=== PATIENT | female | born 1935 | race Caucasian/White ===

== ENCOUNTER 2016-08-09 00:33 | Inpatient (IN) | payer MEDICARE, BC ==
--- NOTE | 2016-08-09 01:09 | ED ---
gerry Arguelles Timothy, scribed for Calixto Guerrero MD on 08/09/16 at 0053 . Altered Mental Status - HPI Summary HPI Summary: Elo Smith is an 81 yo female presenting to [facility] with symptoms including confusion and inability to bend her right knee, including diaphoresis with the attempt. Additionally she states general weakness, nausea, and head ache as of 1999 today 08/08/16. She was at rest when she noticed her Sx. Her Hx includes TIA. - History Of Current Complaint Chief Complaint: EDGeneral Stated Complaint: POSS STROKE Hx Obtained From: Patient Onset/Duration: Still Present, Suddenly Timing: Constant, Lasting Minutes Severity Initially: Moderate Severity Currently: Moderate Character: Confusion Aggravating Factor(s): Nothing Alleviating Factor(s): Nothing Associated Signs And Symptoms: Positive: Nausea, Weakness - Allergies/Home Medications Allergies/Adverse Reactions: Allergies Allergy/AdvReac Type Severity Reaction Status Date / Time Sulfa Drugs Allergy Intermediate Rash Verified 01/12/16 14:43 Methocarbamol AdvReac Intermediate confusion Verified 01/12/16 14:43 Morphine AdvReac Intermediate Nausea And Verified 01/12/16 14:43 Vomiting Home Medications: Home Medications Aspirin [Aspirin Adult Low Strengt] 81 mg PO DAILY 08/09/16 [History Confirmed 08/09/16] Atorvastatin* [Lipitor*] 10 mg PO DAILY 08/09/16 [History Confirmed 08/09/16] Cholecalciferol [Vitamin D-3] 1,000 i.u. PO DAILY 08/09/16 [History Confirmed ] Cyanocobalamin [Vitamin B 12] 1,000 mcg PO DAILY 08/09/16 [History Confirmed 06/15] Epleronone (NF) [Inspra (NF)] 25 mg PO DAILY 08/09/16 [History Confirmed ] Losartan Potassium [Cozaar] 50 mg PO DAILY 08/09/16 [History Confirmed 08/09/16] Multiple Vitamin [Multi Vitamin] 1 tab PO DAILY 08/09/16 [History Confirmed 06/15] Paroxetine HCl [Paxil] 30 mg PO DAILY 08/09/16 [History Confirmed 08/09/16] Phenytoin CAP(*) [Dilantin CAP(*)] 100 mg PO QAM 08/09/16 [History Confirmed 06/15] Phenytoin CAP(*) [Dilantin CAP(*)] 200 mg PO QPM 08/09/16 [History Confirmed 06/15] Pyridostigmine [place] [Mestinon] 60 mg PO SEE INSTRUCTIONS 08/09/16 [History Confirmed 08/09/16] Solifenacin(NF) [Vesicare(NF)] 10 mg PO DAILY 08/09/16 [History Confirmed ] PMH/Surg Hx/FS Hx/Imm Hx Endocrine/Hematology History: Reports: Hx Anticoagulant Therapy - ASA 81 mg qd, Hx Blood Transfusions, Hx Thyroid Disease, Other Endocrine/Hematological Disorders - A- Denies: Hx Diabetes Cardiovascular History: Reports: Hx Aneurysm, Hx Angina, Hx Coronary Artery Disease, Hx Hypercholesterolemia, Hx Hypertension, Other Cardiovascular Problems /Disorders - cardiac stents Denies: Hx Pacemaker/ICD Respiratory History: Reports: Hx Asthma, Hx Chronic Bronchitis, Hx Chronic Obstructive Pulmonary Disease (COPD) Comment Only: Other Respiratory Problems/Disorders - COPD GI History: Reports: Hx Gastroesophageal Reflux Disease, Other GI Disorders - constipation r/t pain meds History: Denies: Hx Renal Disease Musculoskeletal History: Reports: Hx Arthritis, Hx Back Problems, Hx Orthopedic Injury, Hx Osteoporosis, Other Musculoskeletal History - megaprostesis LLE Sensory History: Reports: Hx Contacts or Glasses Denies: Hx Hearing Aid Comment Only: Other Sensory Impairments - occular myesthenia gravis Opthamlomology History: Reports: Hx Contacts or Glasses Comment Only: Other Sensory Impairments - occular myesthenia gravis Neurological History: Reports: Hx Seizures - hx brain tumor, Hx Transient Ischemic Attacks (TIA) Denies: Hx Dementia Psychiatric History: Reports: Hx Depression Denies: Hx Panic Disorder, Hx Substance Abuse - Cancer History Cancer Type, 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 Hx Chemotherapy: Yes - 19 yrs ago - Surgical History Surgery Procedure, Year, and Place: hysterectomy, benign brain tumor 1988 with seizure activity(no seizures since surgery) Craniotomy , osteosarcoma left femur with lila,left FEMUR plate,appendectomy,hernia repair,[place]ONE IS CONDITIONAL 5 FOR 3T,2ND IS SAFE FOR BOTH) - Immunization History Date of Tetanus Vaccine: Unk Date of Influenza Vaccine: Fall 2011 Infectious Disease History: No Infectious Disease History: Denies: Hx Hepatitis, Hx Human Immunodeficiency Virus (HIV), Traveled Outside the [place] in Last 30 Days - Family History Known Family History: Positive: Hypertension Negative: Cardiac Disease, Diabetes - Social History Alcohol Use: Daily Alcohol Amount: glass of wine Substance Use Type: Reports: None Smoking Status (MU): Former Smoker Review of Systems Positive: Skin Diaphoresis Eyes: Negative ENT: Negative Cardiovascular: Negative Respiratory: Negative Positive: Nausea Genitourinary: Negative Positive: Decreased ROM - unable to bend right knee Skin: Negative Neurological: Other - weakness Positive: Headache Psychological: Normal All Other Systems Reviewed And Are Negative: Yes Physical Exam Triage Information Reviewed: Yes Vital Signs On Initial Exam: Initial Vitals Temp Pulse Resp BP Pulse Ox 98.3 F 85 18 146/54 98 08/09/16 00:46 08/09/16 00:46 08/09/16 00:46 08/09/16 00:46 08/09/16 00:46 Vital Signs Reviewed: Yes Appearance: Positive: Well-Appearing, No Pain Distress Skin: Positive: Warm Eyes: Positive: EDU ENT: Positive: Hearing grossly normal Neck: Positive: Supple Respiratory/Lung Sounds: Positive: Clear to Auscultation, Breath Sounds Present Cardiovascular: Positive: RRR Abdomen Description: Positive: Nontender, Soft Bowel Sounds: Positive: Present Musculoskeletal: Positive: Strength/ROM Intact Neurological: Positive: Sensory/Motor Intact, Alert, Oriented to Person Place, Time Psychiatric: Positive: Affect/Mood Appropriate Diagnostics - Vital Signs Vital Signs Temp Pulse Resp BP Pulse Ox 08/09/16 00:46 98.3 F 85 18 146/54 98 - Laboratory Result Diagrams: 08/09/16 00:45 08/09/16 00:45 Lab Statement: Any lab studies that have been ordered have been reviewed, and results considered in the medical decision making process. - EKG 0144 Cardiac Rate: Tachycardia - 101 BPM EKG Interpretation: Sinus tachycardia @ 101 BPM. Left bundle branch, old. Re-Evaluation - Re-Evaluation First Eval Comment: results d/w pt Altered Mental Statu Course/Dx - Course Assessment/Plan: Elo Smith is an 81 yo female presenting to [facility] with nausea, DOAN, confusion, and inability to bend her right knee, she has elevated troponin. After discussion with Dr. Schmidt, she will be admitted to [facility]. She is agreeable to this plan. - Diagnoses Discharge Diagnoses: ACS (acute coronary syndrome) - Provider Notifications Discussed Care Of Patient With: 014Eula Schmidt (hospitalist) - discussed Pt condition. Agrees to admit Pt. Instructed by Provider To: Admit As Inpatient Discharge - Discharge Plan Condition: Stable Disposition: ADMITTED TO [facility] documentation as recorded by the gerry merino Timothy accurately reflects the service I personally performed and the decisions made by me, Calixto Guerrero MD.
[2016-08-09 01:10] LABS: Hematocrit 37 % (35-47); Hemoglobin 12.6 g/dl (12.0-16.0); Mean Corpuscular HGB Conc 34 g/dl (31-36); Mean Corpuscular Hemoglobin 35 pg (27-31); Mean Corpuscular Volume 104 fL (80-97); Mean Platelet Volume 9 um3 (7.4-10.4); Red Blood Count 3.61 10^6/ul (4.0-5.4); Red Cell Distribution Width 14 % (10.5-15)
[2016-08-09 01:21] LABS: Calcium 9.6 mg/dL (8.6-10.3); EGFR African American 77.3 (>60); EGFR Non-African American 60.1 (>60); Globulin 2.5 g/dL (2-4); Magnesium 1.9 mg/dL (1.9-2.7); Potassium 4.3 mmol/L (3.5-5.0); Total Bilirubin 0.2 mg/dL (0.2-1.0); Total Protein 6.5 g/dL (6.4-8.9)
[2016-08-09 01:26] LABS: Troponin I 0.1 ng/mL (<0.04)
[2016-08-09 01:54] LABS: TSH (Thyroid Stimulating Horm) 2.47 mcIU/mL (0.34-5.60)
[2016-08-09 02:34] LABS: Urine Bilirubin Negative (Negative); Urine Glucose Negative (Negative); Urine Nitrite Negative (Negative)
--- NOTE | 2016-08-09 03:06 | HP ---
H&P (Free Text) History and Physical: PCP: Yousif Guido MD Date/Time of Evaluation: 329 CC: confusion HPI: Mrs Smith is an 81YO female HX CAD, HTN, HLD, seizure disorder, & myasthenia gravis who was watching the [place] basketball game around 1900 awaiting [facility] address at 2100. She is unsure whether she fell asleep, but the next thing she realized it was 2300 and she was tremulous, sweating, and nauseous. She was unable to stand and so called her son who in turn called EMS. En route EMS reported a blood sugar of >400, but serum glucose here was 102. She denies chest pain, focal W/N/T, slurred speech, word searching , difficulty swallowing, headache, F/C, emesis, change in bowel/bladder, or other issues. Upon my evaluation, her son states she is still mildly confused, but much better. 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 makes her"deathly ill" Ambulatory Orders Aspirin [Aspirin Adult Low Strengt] 81 mg PO DAILY 08/09/16 Atorvastatin* [Lipitor*] 10 mg PO DAILY 08/09/16 Cholecalciferol [Vitamin D-3] 1,000 i.u. PO DAILY 08/09/16 Cyanocobalamin [Vitamin B 12] 1,000 mcg PO DAILY 08/09/16 Epleronone (NF) [Inspra (NF)] 25 mg PO DAILY 08/09/16 Losartan Potassium [Cozaar] 50 mg PO DAILY 08/09/16 Multiple Vitamin [Multi Vitamin] 1 tab PO DAILY 08/09/16 Paroxetine HCl [Paxil] 30 mg PO DAILY 08/09/16 Phenytoin CAP(*) [Dilantin CAP(*)] 100 mg PO QAM 08/09/16 Phenytoin CAP(*) [Dilantin CAP(*)] 200 mg PO QPM 08/09/16 Pyridostigmine [place] [Mestinon] 60 mg PO SEE INSTRUCTIONS 08/09/16 Solifenacin(NF) [Vesicare(NF)] 10 mg PO DAILY 08/09/16 PSurgHx L femur surgery appendectomy hysterectomy SocHx: former smoker quit 20 years ago but continues to chew nicotine gum, 2 glasses wine nightly, no recreational drugs; lives with her son; full code status FamHx: reviewed, non-contributory ROS: as above, otherwise reviewed and all were negative Constitutional: NAD, normally developed, well-nourished elderly white female vitals: Vital Signs Temp 36.9 C 08/09/16 04:25 Pulse 94 08/09/16 04:25 Resp 18 08/09/16 04:25 BP 145/64 08/09/16 04:25 Pulse Ox 99 08/09/16 04:25 Intake & Output 08/08/16 08/08/16 08/09/16 11:59 23:59 11:59 Weight 126 lb HEENM: atraumatic; sclera/conjunctiva: non-icteric/clear; hearing: mildly decreased; oropharynx: clear, mucosa moist Neck: soft tissue: non-tender; thyroid: normal Pulmonary: clear to auscultation bilaterally, good aeration, no accessory muscle use CV: RR/RR, normal S1S2, 2/6 systolic aortic area murmur, R>L carotid bruit, no jugular venous distention, 2+ B DP/PT, no edema Abdominal: soft, non-distended, non-tender, no rebound/guarding/rigidity, normoactive bowel sounds, no hepatosplenomegaly or masses, no costovertebral angle tenderness Musculoskeletal: general: grossly intact; gait: minimally ambulatory with a 4- wheeled walker at baseline Integumental: normal appearance and texture Neurological cranial nerves III/IV/: symmetric light reflex, EOMI/PERRLA VII: intact facial symmetry IX/X: symmetric palatal motion, no dysarthria XII: midline tongue protrusion, normal voice articulation motor grossly intact Psychiatric orientation: AA&O to PPS affect: mildly anxious mood: pleasant eye contact: good content: fairly reliable memory: absent regarding event, impaired short-term memory responses: mildly slowed insight: fair to good Testing: Lab Results 08/09/16 08/09/16 08/09/16 Range/Units 00:45 00:45 00:45 WBC 7.0 (3.5-10.8) 10^3/ul RBC 3.61 L (4.0-5.4) 10^6/ul Hgb 12.6 (12.0-16.0) g/dl Hct 37 (35-47) % MCV 104 H (80-97) fL MCH 35 H (27-31) pg MCHC 34 (31-36) g/dl RDW 14 (10.5-15) % Plt Count 220 (150-450) 10^3/ul MPV 9 (7.4-10.4) um3 Neut % (Auto) 74.9 (38-83) % Lymph % (Auto) 10.2 L (25-47) % Jack % (Auto) 10.5 H (1-9) % Eos % (Auto) 3.6 (0-6) % Baso % (Auto) 0.8 (0-2) % Absolute Neuts (auto) 5.3 (1.5-7.7) 10^3/ul Absolute Lymphs (auto) 0.7 L (1.0-4.8) 10^3/ul Absolute Monos (auto) 0.7 (0-0.8) 10^3/ul Absolute Eos (auto) 0.3 (0-0.6) 10^3/ul Absolute Basos (auto) 0.1 (0-0.2) 10^3/ul Absolute Nucleated RBC 0 10^3/ul Nucleated RBC % 0.1 Sodium 131 L (133-145) mmol/L Potassium 4.3 (3.5-5.0) mmol/L Chloride 99 L (101-111) mmol/L Carbon Dioxide 24 (22-32) mmol/L Anion Gap 8 (2-11) mmol/L BUN 18 (6-24) mg/dL Creatinine 0.90 (0.51-0.95) mg/dL Est GFR ( Amer) 77.3 (>60) Est GFR (Non-Af Amer) 60.1 (>60) BUN/Creatinine Ratio 20.0 (8-20) Glucose 102 H (70-100) mg/dL Lactic Acid 2.6 H* (0.5-2.0) mmol/L Calcium 9.6 (8.6-10.3) mg/dL Magnesium 1.9 (1.9-2.7) mg/dL Total Bilirubin 0.20 (0.2-1.0) mg/dL AST 21 (13-39) U/L ALT 15 (7-52) U/L Alkaline Phosphatase 48 (34-104) U/L Troponin I 0.10 H* (<0.04) ng/mL Total Protein 6.5 (6.4-8.9) g/dL Albumin 4.0 (3.2-5.2) g/dL Globulin 2.5 (2-4) g/dL Albumin/Globulin Ratio 1.6 (1-3) TSH 2.47 (0.34-5.60) mcIU/mL Urine Color Urine Appearance Urine pH (5-9) Ur Specific [place] (1.010-1.030) Urine Protein (Negative) Urine Ketones (Negative) Urine Blood (Negative) Urine Nitrate (Negative) Urine Bilirubin (Negative) Urine Urobilinogen (Negative) Ur Leukocyte Esterase (Negative) Urine Glucose (Negative) Urine Ascorbic Acid (Negative) Phenytoin 5.8 L (10-20) mcg/mL Serum Alcohol 55 H (<10) mg/dL 08/09/16 08/09/16 Range/Units 02:20 02:20 WBC (3.5-10.8) 10^3/ul RBC (4.0-5.4) 10^6/ul Hgb (12.0-16.0) g/dl Hct (35-47) % MCV (80-97) fL MCH (27-31) pg MCHC (31-36) g/dl RDW (10.5-15) % Plt Count (150-450) 10^3/ul MPV (7.4-10.4) um3 Neut % (Auto) (38-83) % Lymph % (Auto) (25-47) % Jack % (Auto) (1-9) % Eos % (Auto) (0-6) % Baso % (Auto) (0-2) % Absolute Neuts (auto) (1.5-7.7) 10^3/ul Absolute Lymphs (auto) (1.0-4.8) 10^3/ul Absolute Monos (auto) (0-0.8) 10^3/ul Absolute Eos (auto) (0-0.6) 10^3/ul Absolute Basos (auto) (0-0.2) 10^3/ul Absolute Nucleated RBC 10^3/ul Nucleated RBC % Sodium (133-145) mmol/L Potassium (3.5-5.0) mmol/L Chloride (101-111) mmol/L Carbon Dioxide (22-32) mmol/L Anion Gap (2-11) mmol/L BUN (6-24) mg/dL Creatinine (0.51-0.95) mg/dL Est GFR ( Amer) (>60) Est GFR (Non-Af Amer) (>60) BUN/Creatinine Ratio (8-20) Glucose (70-100) mg/dL Lactic Acid (0.5-2.0) mmol/L Calcium (8.6-10.3) mg/dL Magnesium (1.9-2.7) mg/dL Total Bilirubin (0.2-1.0) mg/dL AST (13-39) U/L ALT (7-52) U/L Alkaline Phosphatase (34-104) U/L Troponin I 0.10 H* (<0.04) ng/mL Total Protein (6.4-8.9) g/dL Albumin (3.2-5.2) g/dL Globulin (2-4) g/dL Albumin/Globulin Ratio (1-3) TSH (0.34-5.60) mcIU/mL Urine Color Yellow Urine Appearance Clear Urine pH 5.0 (5-9) Ur Specific [place] 1.013 (1.010-1.030) Urine Protein Negative (Negative) Urine Ketones Negative (Negative) Urine Blood Negative (Negative) Urine Nitrate Negative (Negative) Urine Bilirubin Negative (Negative) Urine Urobilinogen Negative (Negative) Ur Leukocyte Esterase Negative (Negative) Urine Glucose Negative (Negative) Urine Ascorbic Acid * H (Negative) Phenytoin (10-20) mcg/mL Serum Alcohol (<10) mg/dL ECG, personally reviewed: LBBB rate 101 Impression: 81F presenting with confusion & generalized weakness found to have an indeterminate troponin and mildly elevated lactic acid DIAGNOSIS & PLAN Primary confusion : dDx: ACS vs seizure vs mild dementia & alcohol vs doubt TIA vs doubt infection : telemetry : trend troponin : recheck lactic acid in AM : aspirin : supplemental oxygen : PT evaluation : neurochecks : supportive care seizure disorder : phenytoin level low, give additional 150mg IV dose x1 : continue phenytoin PO : EEG in AM : seizure precautions Secondary CAD/stent x2 : continue aspirin HX TIA : continue aspirin HTN : continue losartan HLD : continue atorvastatin : heart healthy diet myasthenia gravis : continue pyridostigmine OAB : continue solifenacin osteogenic chondrosarcoma of L femur : ~20Y s/p excision, no evidence of disease depression : continue paroxetine Admission Rational: inpatient for evaluation of altered mental status ? etiology , doubt monitoring & evaluation will be complete enough to allow for D/C w/i 48h DVTp: SCDs & heparin SQ Code Status: full HCP: sonJavier
[2016-08-09] MEDS ORDERED: Ondansetron INJ* 2 MG/ML VIAL IV PRN (03:56)
[2016-08-09] MEDS ORDERED: Melatonin (NF) 3 MG TAB PO PRN (03:56)
[2016-08-09] MEDS ORDERED: Albuterol 2.5 MG/3 ML NEB.SOL* (0.083%) INH PRN (03:56)
[2016-08-09] MEDS ORDERED: Acetaminophen TAB* 325 MG PO PRN (03:56)
[2016-08-09] MEDS ORDERED: NS 0.9% 1000 ML* 1,000 ML IV SCH (04:00)
[2016-08-09 04:23] LABS: Phenytoin 5.8 mcg/mL (10-20)
[2016-08-09] MEDS: Aspirin TAB* 325 MG PO SCH ×2 (04:56→08:15)
[2016-08-09] MEDS ORDERED: Fosphenytoin(*) 100 MG/2 ML VIAL IVPB ONE (05:11)
[2016-08-09] MEDS ORDERED: FOSPHENYTOIN IVPB ONE (05:40)
[2016-08-09] MEDS ORDERED: NS 0.9% IVPB ONE (05:40)
[2016-08-09] MEDS ORDERED: Omeprazole CAP* 20 MG PO SCH (06:00)
[2016-08-09] MEDS: CMCS Solifenacin(NF) 5 MG TAB PO SCH (08:13)
[2016-08-09] MEDS: Atorvastatin* 10 MG TAB PO SCH (08:16)
[2016-08-09] MEDS: Spironolactone TAB* 25 MG PO SCH (08:16)
[2016-08-09] MEDS ORDERED: PARoxetine HCL TAB* 10 MG PO SCH (09:00)
[2016-08-09] MEDS ORDERED: Docusate CAP* 100 MG PO SCH (09:00)
[2016-08-09] MEDS ORDERED: Phenytoin CAP(*) 100 MG CAP.ER PO SCH ×2 (09:00→18:00)
[2016-08-09] MEDS ORDERED: Losartan TAB* 25 MG PO SCH (09:00)
--- NOTE | 2016-08-09 11:28 | PN ---
Subjective Date of Service: 08/09/16 Interval History: Patient c/o weakness. She states she drinks 2 glasses of wine every day. Her dil is present, states that patient is confused. Objective Active Medications: Acetaminophen (Tylenol Tab*) 650 mg PO Q6H PRN PRN Reason: FEVER/PAIN Albuterol (Ventolin 2.5 Mg/3 Ml Neb.Michelle*) 2.5 mg INH Q2H PRN PRN Reason: SOB/WHEEZING Aspirin (Aspirin Tab*) 325 mg PO DAILY [facility] Last Admin: 08/09/16 08:15 Dose: 325 mg Atorvastatin Calcium (Lipitor*) 10 mg PO DAILY [facility] Last Admin: 08/09/16 08:16 Dose: 10 mg Heparin Sodium (Porcine) (Heparin Vial(*)) 5,000 units SUBCUT Q8HR [facility] Sodium Chloride (Ns 0.9% 1000 Ml*) 1,000 mls @ 75 mls/hr IV PER RATE [facility] Last Admin: 08/09/16 04:57 Dose: 75 mls/hr Losartan Potassium (Cozaar Tab*) 25 mg PO DAILY [facility] Ondansetron HCl (Zofran Inj*) 4 mg IV Q6H PRN PRN Reason: NAUSEA Paroxetine HCl (Paxil Tab*) 20 mg PO DAILY [facility] Phenytoin Sodium (Dilantin Cap(*)) 100 mg PO QAM [facility] Last Admin: 08/09/16 08:15 Dose: 100 mg Phenytoin Sodium (Dilantin Infatabs Chew Tab(*)) 150 mg PO DAILY [facility] Phenytoin Sodium (Dilantin Cap(*)) 200 mg PO QPM [facility] Solifenacin (Vesicare(Nf)) 10 mg PO DAILY [facility] Last Admin: 08/09/16 08:13 Dose: 10 mg Spironolactone (Aldactone Tab*) 12.5 mg PO DAILY [facility] PRN Reason: Protocol Last Admin: 08/09/16 08:16 Dose: 12.5 mg Vital Signs 08/09/16 08/09/16 08/09/16 04:25 05:53 05:55 Temperature 98.4 F 97.9 F Pulse Rate 94 87 Respiratory 18 16 16 Rate Blood Pressure 145/64 156/61 (mmHg) O2 Sat by Pulse 99 100 Oximetry 08/09/16 08:00 Temperature Pulse Rate Respiratory 16 Rate Blood Pressure (mmHg) O2 Sat by Pulse Oximetry Oxygen Devices in Use Now: None Appearance: Alert, partly up in bed. Neutral affect. Looks comfortable. Eyes: No Scleral Icterus Neck: NL Appearance and Movements; NL JVP, No Thyroid Enlargement, Masses Respiratory: Symmetrical Chest Expansion and Respiratory Effort, Clear to Auscultation, Clear to Percussion Cardiovascular: NL Sounds; No Murmurs; No JVD, RRR, No Edema, - Extremities: No Edema, No Clubbing, Cyanosis, - Skin: No Rash or Ulcers, No Nodules or Sclerosis, - Neurological: Alert and Oriented x 3, NL Sensation Result Diagrams: 08/09/16 00:45 08/09/16 00:45 Assess/Plan/Problems-Billing Assessment: - Patient Problems (1) Seizure disorder Current Visit: Yes Status: Acute Code(s): G40.909 - EPILEPSY, UNSP, NOT INTRACTABLE, WITHOUT STATUS EPILEPTICUS SNOMED Code(s): 253793155 Comment: Phenytoin 5.8, significantly lower than the other levels in the record. Dose increased to 150 mg AM, 200 mg PM. Level 08/10. Patient advised to limit her alcohol use to 1 glass wine per day. Prolactin level ordered as add-on. (2) Gait difficulty Current Visit: Yes Status: Acute Code(s): R26.9 - UNSPECIFIED ABNORMALITIES OF GAIT AND MOBILITY SNOMED Code(s): 34700779 Comment: PT carlos requested. (3) Dementia Current Visit: Yes Status: Acute Code(s): F03.90 - UNSPECIFIED DEMENTIA WITHOUT BEHAVIORAL DISTURBANCE SNOMED Code(s): 43204126 Comment: Family aware of her problem. Her son lives with her but is away much of the day.
[2016-08-09] MEDS ORDERED: Pyridostigmine TAB* 60 MG PO ONE (12:05)
[2016-08-09] MEDS ORDERED: Levothyroxine TAB* 25 MCG TAB PO ONE (12:08)
--- NOTE | 2016-08-09 12:12 | PN ---
Subjective Date of Service: 08/09/16 Interval History: This is an addendum to the earlier note today. Objective Active Medications: Acetaminophen (Tylenol Tab*) 650 mg PO Q6H PRN PRN Reason: FEVER/PAIN Albuterol (Ventolin 2.5 Mg/3 Ml Neb.Michelle*) 2.5 mg INH Q2H PRN PRN Reason: SOB/WHEEZING Aspirin (Aspirin Tab*) 325 mg PO DAILY [facility] Last Admin: 08/09/16 08:15 Dose: 325 mg Atorvastatin Calcium (Lipitor*) 10 mg PO DAILY [facility] Last Admin: 08/09/16 08:16 Dose: 10 mg Heparin Sodium (Porcine) (Heparin Vial(*)) 5,000 units SUBCUT Q8HR [facility] Levothyroxine Sodium (Synthroid Tab*) 125 mcg PO DAILY@0600 [facility] Levothyroxine Sodium (Synthroid Tab*) 125 mcg PO ONCE ONE Stop: 08/09/16 12:09 Losartan Potassium (Cozaar Tab*) 25 mg PO DAILY [facility] Ondansetron HCl (Zofran Inj*) 4 mg IV Q6H PRN PRN Reason: NAUSEA Paroxetine HCl (Paxil Tab*) 20 mg PO DAILY [facility] Phenytoin Sodium (Dilantin Infatabs Chew Tab(*)) 150 mg PO DAILY [facility] Phenytoin Sodium (Dilantin Cap(*)) 200 mg PO QPM [facility] Pyridostigmine [place] (Mestinon Tab*) 90 mg PO 0800,1200 [facility] Pyridostigmine [place] (M[place]inon Tab*) 60 mg PO BEDTIME [facility] Pyridostigmine [place] ([place] Tab*) 90 mg PO ONCE ONE Stop: 08/09/16 12:06 Solifenacin (Vesicare(Nf)) 10 mg PO DAILY [facility] Last Admin: 08/09/16 08:13 Dose: 10 mg Spironolactone (Aldactone Tab*) 12.5 mg PO DAILY [facility] PRN Reason: Protocol Last Admin: 08/09/16 08:16 Dose: 12.5 mg Vital Signs 08/09/16 08/09/16 08/09/16 04:25 05:53 05:55 Temperature 98.4 F 97.9 F Pulse Rate 94 87 Respiratory 18 16 16 Rate Blood Pressure 145/64 156/61 (mmHg) O2 Sat by Pulse 99 100 Oximetry 08/09/16 08/09/1608/09/17 07:26 08:00 11:34 Temperature 99.0 F 97.9 F Pulse Rate 99 85 Respiratory 18 16 18 Rate Blood Pressure 126/50 154/61 (mmHg) O2 Sat by Pulse 97 97 Oximetry Oxygen Devices in Use Now: None Result Diagrams: 08/09/16 00:45 08/09/16 00:45 Assess/Plan/Problems-Billing Assessment: - Patient Problems (1) Seizure disorder Current Visit: Yes Status: Acute Code(s): G40.909 - EPILEPSY, UNSP, NOT INTRACTABLE, WITHOUT STATUS EPILEPTICUS SNOMED Code(s): 964493883 Comment: Phenytoin 5.8, significantly lower than the other levels in the record. Dose increased to 150 mg AM, 200 mg PM. Level 08/10. Patient advised to limit her alcohol use to 1 glass wine per day. Prolactin level ordered as add-on. (2) Gait difficulty Current Visit: Yes Status: Acute Code(s): R26.9 - UNSPECIFIED ABNORMALITIES OF GAIT AND MOBILITY SNOMED Code(s): 13613001 Comment: PT carlos requested. (3) Dementia Current Visit: Yes Status: Acute Code(s): F03.90 - UNSPECIFIED DEMENTIA WITHOUT BEHAVIORAL DISTURBANCE SNOMED Code(s): 89909114 Comment: Family aware of her problem. Her son lives with her but is away much of the day. (4) Myasthenia gravis Current Visit: Yes Status: Acute Code(s): G70.00 - MYASTHENIA GRAVIS WITHOUT (ACUTE) EXACERBATION SNOMED Code(s): 31210878 Comment: Resume usual dose pyridostigmine, noon 08/09/16. Patient missed two doses here. (5) Hypothyroid Current Visit: Yes Status: Acute Code(s): E03.9 - HYPOTHYROIDISM, UNSPECIFIED SNOMED Code(s): 29375284 Comment: Continue levothyroxine 125 mcg, dose per [facility].
[2016-08-09 12:26] LABS: Prolactin 22.1 ng/mL (1.0-25.0)
[2016-08-09] MEDS: Phenytoin CHEW TAB(*) 50 MG PO SCH (13:46)
[2016-08-09] MEDS ORDERED: Magnesium Sulfate 1 GM IV* 1 GM/100 ML BAG IV ONE (16:21)
[2016-08-09] MEDS: Famotidine TAB* 20 MG PO SCH (19:50)
[2016-08-09] MEDS: Phenytoin CAP(*) 100 MG CAP.ER PO SCH (20:57)
[2016-08-09] MEDS: Pyridostigmine TAB* 60 MG PO SCH (20:58)
--- NOTE | 2016-08-10 02:17 | EEG ---
ELECTROENCEPHALOGRAPHY: DATE OF STUDY/DICTATION: 08/09/16 - ROOM #450 PATIENT OF: Dr. Ribera and Dr. Schmidt. CLINICAL PROBLEM: This 81-year-old woman with a known history of seizure disorder and myasthenia gravis who had an episode of unresponsiveness with shaking that was thought to be a seizure and this is a reevaluation. MEDICATIONS: Medicine on admission include: 1. Dilantin. 2. Zofran. 3. Melatonin. 4. Ventolin. 5. Prozac. 6. Heparin. 7. Aldactone. 8. Paxil. 9. Cozaar. 10. Colace. 11. Lipitor. 12. Aspirin. REPORT: With the patient awake, background cerebral activity consists of moderate amplitude posterior dominant 9 Hz rhythm. There is occasional left temporal sharp waves throughout this tracing. No subclinical seizures are noted. CLINICAL IMPRESSION: This awake EEG is abnormal because of the presence of left temporal sharp waves suggesting a predisposition to a focal seizure disorder and similar to study done in 2002. [id number]/[facility] #: [id number] [facility]
[2016-08-10] MEDS: Heparin VIAL(*) 5000 UNITS/ML VIAL (FIVE THOUSAND) SUBCUT SCH ×3 (06:08→21:27)
[2016-08-10] MEDS: Levothyroxine TAB* 125 MCG TAB PO SCH (06:08)
[2016-08-10] MEDS: Pyridostigmine TAB* 60 MG PO SCH ×3 (07:52→20:33)
[2016-08-10] MEDS: Atorvastatin* 10 MG TAB PO SCH (07:54)
[2016-08-10] MEDS: Aspirin TAB* 325 MG PO SCH (07:54)
[2016-08-10] MEDS: PARoxetine HCL TAB* 20 MG PO SCH (07:55)
[2016-08-10] MEDS: Losartan TAB* 25 MG PO SCH (07:55)
[2016-08-10] MEDS: Magnesium Oxide TAB* 400 MG PO SCH (07:55)
[2016-08-10] MEDS: Spironolactone TAB* 25 MG PO SCH (07:56)
[2016-08-10] MEDS: CMCS Solifenacin(NF) 5 MG TAB PO SCH (07:56)
[2016-08-10] MEDS: Phenytoin CHEW TAB(*) 50 MG PO SCH (07:56)
[2016-08-10] MEDS: Docusate CAP* 100 MG PO SCH (11:22)
--- NOTE | 2016-08-10 15:42 | PN ---
Subjective Date of Service: 08/10/16 Interval History: She had a good day today. Walking better. Good appetite. No new c/o. Objective Active Medications: Acetaminophen (Tylenol Tab*) 650 mg PO Q6H PRN PRN Reason: FEVER/PAIN Albuterol (Ventolin 2.5 Mg/3 Ml Neb.Michelle*) 2.5 mg INH Q2H PRN PRN Reason: SOB/WHEEZING Aspirin (Aspirin Tab*) 325 mg PO DAILY [facility] Last Admin: 08/10/16 07:54 Dose: 325 mg Atorvastatin Calcium (Lipitor*) 10 mg PO DAILY [facility] Last Admin: 08/10/16 07:54 Dose: 10 mg Docusate Sodium (Colace Cap*) 200 mg PO DAILY [facility] Last Admin: 08/10/16 11:22 Dose: 200 mg Famotidine (Pepcid Tab*) 20 mg PO QPM [facility] PRN Reason: Protocol Last Admin: 08/09/16 19:50 Dose: 150 mg Heparin Sodium (Porcine) (Heparin Vial(*)) 5,000 units SUBCUT Q8HR [facility] Last Admin: 08/10/16 14:05 Dose: 5,000 units Levothyroxine Sodium (Synthroid Tab*) 125 mcg PO DAILY@0600 [facility] Last Admin: 08/10/16 06:08 Dose: 125 mcg Losartan Potassium (Cozaar Tab*) 25 mg PO DAILY [facility] Last Admin: 08/10/16 07:55 Dose: 25 mg Magnesium Oxide (Magox 400 Tab*) 400 mg PO DAILY [facility] Last Admin: 08/10/16 07:55 Dose: 400 mg Ondansetron HCl (Zofran Inj*) 4 mg IV Q6H PRN PRN Reason: NAUSEA Paroxetine HCl (Paxil Tab*) 20 mg PO DAILY [facility] Last Admin: 08/10/16 07:55 Dose: 20 mg Phenytoin Sodium (Dilantin Infatabs Chew Tab(*)) 150 mg PO DAILY [facility] Last Admin: 08/10/16 07:56 Dose: 150 mg Phenytoin Sodium (Dilantin Cap(*)) 200 mg PO QPM [facility] Last Admin: 08/09/16 20:57 Dose: 200 mg Pyridostigmine [place] (Mestinon Tab*) 90 mg PO 0800,1200 [facility] Last Admin: 08/10/16 11:22 Dose: 90 mg Pyridostigmine [place] (Mestinon Tab*) 60 mg PO BEDTIME [facility] Last Admin: 08/09/16 20:58 Dose: 60 mg Solifenacin (Vesicare(Nf)) 10 mg PO DAILY [facility] Last Admin: 08/10/16 07:56 Dose: 10 mg Spironolactone (Aldactone Tab*) 12.5 mg PO DAILY [facility] PRN Reason: Protocol Last Admin: 08/10/16 07:56 Dose: 12.5 mg Vital Signs 08/09/16 08/09/16 08/10/16 19:12 20:00 00:14 Temperature 98.5 F 98.6 F Pulse Rate 83 89 83 Respiratory 14 16 16 Rate Blood Pressure 126/50 141/61 (mmHg) O2 Sat by Pulse 97 97 98 Oximetry 08/10/16 08/10/16 08/10/16 03:48 07:38 08:00 Temperature 98.2 F 98.4 F Pulse Rate 81 91 Respiratory 16 20 20 Rate Blood Pressure 142/68 154/76 (mmHg) O2 Sat by Pulse 95 97 Oximetry 08/10/16 08/10/16 08/10/16 08:21 11:34 13:12 Temperature 98.4 F Pulse Rate 75 83 Respiratory 14 20 Rate Blood Pressure 179/66 140/62 (mmHg) O2 Sat by Pulse 98 100 Oximetry Oxygen Devices in Use Now: None Appearance: Alert, partly up in bed. In good spirits. Looks comfortable. Eyes: No Scleral Icterus Extremities: No Edema, No Clubbing, Cyanosis, - Skin: No Rash or Ulcers, No Nodules or Sclerosis, - Neurological: Alert and Oriented x 3, NL Sensation Result Diagrams: 08/09/16 00:45 08/09/16 00:45 Assess/Plan/Problems-Billing Assessment: - Patient Problems (1) Seizure disorder Current Visit: Yes Status: Acute Code(s): G40.909 - EPILEPSY, UNSP, NOT INTRACTABLE, WITHOUT STATUS EPILEPTICUS SNOMED Code(s): 115808372 Comment: Phenytoin 5.8, significantly lower than the other levels in the record. Continue increased dose of 150 mg AM, 200 mg PM. Level 10.3 08/10. I would repeat next week as outpt. Patient advised to limit her alcohol use to 1 glass wine per day. (2) Gait difficulty Current Visit: Yes Status: Acute Code(s): R26.9 - UNSPECIFIED ABNORMALITIES OF GAIT AND MOBILITY SNOMED Code(s): 08244012 Comment: PT eval done 08/09. Therapist saw her agian 08/10, verbally reports she is walking much better, probably close to or at her baseline. Family confident pt has improved enought to do well at home. (3) Dementia Current Visit: Yes Status: Acute Code(s): F03.90 - UNSPECIFIED DEMENTIA WITHOUT BEHAVIORAL DISTURBANCE SNOMED Code(s): 21863654 Comment: Family aware of her problem. Her son lives with her but is away much of the day. (4) Myasthenia gravis Current Visit: Yes Status: Acute Code(s): G70.00 - MYASTHENIA GRAVIS WITHOUT (ACUTE) EXACERBATION SNOMED Code(s): 32122222 Comment: Resume usual dose pyridostigmine, noon 08/09/16. Patient missed two doses here. (5) Hypothyroid Current Visit: Yes Status: Acute Code(s): E03.9 - HYPOTHYROIDISM, UNSPECIFIED SNOMED Code(s): 65494480 Comment: Continue levothyroxine 125 mcg, dose per [facility]. (6) Meningioma Current Visit: Yes Status: Acute Code(s): D32.9 - BENIGN NEOPLASM OF MENINGES, UNSPECIFIED SNOMED Code(s): 845650537 Comment: Although dx not definite, likely a meningioma, stable since 02/09/[address] Ribera. (7) Ventricular tachycardia Current Visit: Yes Status: Acute Code(s): I47.2 - VENTRICULAR TACHYCARDIA SNOMED Code(s): 58277688 Comment: 7 beats vtach, self-limited, on 08/09, none since. If echo shows nl LVEF would not pursue further wup. If neuro events continue with a therapeutic phenytoin level might consider long-term outpt cardiac monitoring. Continue magnesium oxide.
[2016-08-10] MEDS ORDERED: Calcium Carbonate CHEW TAB* 500 MG (TUMS) PO PRN (16:02)
--- NOTE | 2016-08-10 16:25 | ECHO ---
Patient: RADHA KNOX [facility] Rec#: [id number] : 1935 Date: 08/10/2016 Age: 81y Height: 152.4 cm / 60.0 in Weight: 58.06 kg / 128.0 lbs Sex: F BSA: 1.54 Room#: 450 Admit Date#: 08/09/2016 Type: Inpatient Referring: Antonio Hannah MD Reading: Jasmeet Damon MD Campus Chaplain: Beryl Colvin [facility] CC: Sheila Guido MD Transthoracic Echocardiogram Indication: Abn EKG BP: 142/68 HR: 80 Rhythm: NSR Findings History: CAD with PCI in the past,HLD,seizures,Myasthenia Gravas,LBBB,depression, former smoker. Technical Comments: The study is technically limited due to poor parasternal windows. Left Ventricle: The left ventricular chamber size is normal. Septal wall hypertrophy is observed. The estimated ejection fraction is 45-50%. globally. There is a left ventricular septal wall motion abnormality observed, possibly due to the presence of a left bundle branch block. Normal left ventricular diastolic filling is observed. Left Atrium: The left atrium is mild to moderately dilated. Right Ventricle: The right ventricular cavity size is abnormally small. The right ventricular global systolic function is normal. Right Atrium: The right atrial cavity size is normal. Aortic Valve: The aortic valve structure is not well visualized. There is no evidence of aortic regurgitation. There is no evidence of aortic stenosis. Mitral Valve: There is mitral annular calcification. Mild mitral leaflet calcification is visualized. Mitral valve leaflet mobility is mildly restricted. There is moderate mitral regurgitation. There is moderate mitral stenosis. Tricuspid Valve: The tricuspid valve leaflets are normal. There is mild tricuspid regurgitation. There is evidence of moderate pulmonary hypertension. There is no tricuspid stenosis. Pulmonic Valve: The pulmonic valve appears normal. There is no evidence of pulmonic regurgitation. There is no pulmonic stenosis. Pericardium: The pericardium appears normal. Aorta: There is no dilatation of the ascending aorta. There is no dilatation of the aortic arch. There is no dilation of the aortic root. Pulmonary Artery: The main pulmonary artery appears normal. Venous: The inferior vena cava appears normal in size. There is a greater than 50% respiratory change in the inferior vena cava dimension. Summary: There are changes noted when compared to the previous study done on 03/08/2015, there MS is now moderate instead of mild then. Conclusions The left ventricular chamber size is normal. Septal wall hypertrophy is observed. The estimated ejection fraction is 45-50%. globally. The left atrium is mild to moderately dilated. There is moderate mitral regurgitation. There is moderate mitral stenosis. There is mild tricuspid regurgitation. There is evidence of moderate pulmonary hypertension. There are changes noted when compared to the previous study done on 03/08/2015, there MS is now moderate instead of mild then. Measurements Name Value Normal Range RVIDd (AP) 2D 2.6 cm (0.9 - 2.6) RVDdMajor (2D) 2 cm (2.2 - 4.4) RAd ISD 4CH 4.6 cm (3.4 - 4.9) RA (A4C)W 3.4 cm (2.9 - 4.6) IVSd (2D) 1.1 cm (0.6 - 1) LVPWd (2D) 0.9 cm (0.6 - 1) LVIDd (2D) 3.8 cm (3.6 - 5.4) LVIDs (2D) 2.8 cm - LV FS (2D) 25 % (25 - 45) Aortic Annulus 1.5 cm (1.4 - 2.6) Ao root diameter (2D) 2.9 cm (2.1 - 3.5) Ascending Ao 2.6 cm (2.1 - 3.4) Aortic arch 2 cm (1.8 - 3.4) Descending Ao 0.5 cm - LA dimension (AP) 2D 4.3 cm (2.3 - 3.8) LAd ISD 4CH 6.4 cm (2.9 - 5.3) LA ISD 4CH W 4.1 cm (2.5 - 4.5) Name Value Normal Range LA ESV SP 4CH (A/L) 63 ml - LA ESV SP 2CH (A/L) 48 ml - LA ESV BP (A/L) 60 ml - LA ESV BP (A/L) index 38.87 ml/m2 - LA ESV SP 4CH (MOD) 60 ml - LA ESV SP 2CH (MOD) 44 ml - Name Value Normal Range MV E-wave Vmax 2 m/sec - MV deceleration time 228 msec - MV A-wave Vmax 1.3 m/sec - MV E:A ratio 1.55 ratio - LV septal e' Vmax 0.05 m/sec - LV lateral e' Vmax 0.08 m/sec - LV E:e' septal ratio 40 ratio - LV E:e' lateral ratio 25 ratio - Name Value Normal Range AV Vmax 1.6 m/sec - AV VTI 31 cm - AV peak gradient 9.64 mmHg - AV mean gradient 5.1 mmHg - LVOT diameter 1.5 cm - LVOT Vmax 1.4 m/sec - LVOT VTI 30.2 cm - LVOT peak gradient 7.81 mmHg - LVOT mean gradient 4.13 mmHg - SV LVOT 54 ml - ISAMAR (continuity Vmax) 1.6 cm2 - ISAMAR (continuity VTI) 1.7 cm2 - Name Value Normal Range MV Vmax 3 m/sec - MV VTI 50.2 cm - MV peak gradient 15.91 mmHg - MV mean gradient 5.43 mmHg - MV PHT 56 msec - MVA (PHT) 3.9 cm2 - MVA (continuity VTI) 1.1 cm2 - Name Value Normal Range TR Vmax 3.3 m/sec - TR peak gradient 43 mmHg - RAP 3 mmHg - RVSP 46 mmHg - IVC diameter 1.4 cm - Name Value Normal Range PV Vmax 1.3 m/sec - PV peak gradient 7.03 mmHg -
[2016-08-10] MEDS: Famotidine TAB* 20 MG PO SCH (17:16)
[2016-08-10] MEDS: Phenytoin CAP(*) 100 MG CAP.ER PO SCH (17:17)
[2016-08-10] MEDS: Nicotine GUM* 2 MG PO PRN (20:33)
[2016-08-11] MEDS: Levothyroxine TAB* 125 MCG TAB PO SCH (05:00)
[2016-08-11] MEDS: Heparin VIAL(*) 5000 UNITS/ML VIAL (FIVE THOUSAND) SUBCUT SCH ×2 (05:00→14:17)
[2016-08-11] MEDS: Spironolactone TAB* 25 MG PO SCH (07:47)
[2016-08-11] MEDS: Nicotine GUM* 2 MG PO PRN ×3 (07:47→14:25)
[2016-08-11] MEDS: Docusate CAP* 100 MG PO SCH (07:47)
[2016-08-11] MEDS: Phenytoin CHEW TAB(*) 50 MG PO SCH (07:48)
[2016-08-11] MEDS: Aspirin TAB* 325 MG PO SCH (07:48)
[2016-08-11] MEDS: Losartan TAB* 25 MG PO SCH (07:48)
[2016-08-11] MEDS: PARoxetine HCL TAB* 20 MG PO SCH (07:48)
[2016-08-11] MEDS: Atorvastatin* 10 MG TAB PO SCH (07:48)
[2016-08-11] MEDS: Magnesium Oxide TAB* 400 MG PO SCH (07:48)
[2016-08-11] MEDS: CMCS Solifenacin(NF) 5 MG TAB PO SCH (07:49)
[2016-08-11] MEDS: Pyridostigmine TAB* 60 MG PO SCH ×2 (07:49→11:54)
--- NOTE | 2016-08-11 10:28 | PN ---
Subjective Date of Service: 08/11/16 Interval History: Patient seen and examined at bedside. She is OOB to chair. She states, "I feel pretty well." She reports feeling jittery this AM after receiving albuterol. She denies fever/chills, chest pain, SOB, abd pain, n/v. She is hoping to go home today. No new nursing concerns. Patient reportedly walking more steadily. Telemetry: NSR 70s Family History: Unchanged from Admission Social History: Unchanged from Admission Past Medical History: Unchanged from Admission Objective Active Medications: Acetaminophen (Tylenol Tab*) 650 mg PO Q6H PRN PRN Reason: FEVER/PAIN Albuterol (Ventolin 2.5 Mg/3 Ml Neb.Michelle*) 2.5 mg INH Q2H PRN PRN Reason: SOB/WHEEZING Last Admin: 08/11/16 09:14 Dose: 2.5 mg Aspirin (Aspirin Tab*) 325 mg PO DAILY [facility] Last Admin: 08/11/16 07:48 Dose: 325 mg Atorvastatin Calcium (Lipitor*) 10 mg PO DAILY [facility] Last Admin: 08/11/16 07:48 Dose: 10 mg Calcium Carbonate (Tums*) 500 mg PO Q4H PRN PRN Reason: DYSPEPSIA Docusate Sodium (Colace Cap*) 200 mg PO DAILY [facility] Last Admin: 08/11/16 07:47 Dose: 200 mg Famotidine (Pepcid Tab*) 20 mg PO QPM [facility] PRN Reason: Protocol Last Admin: 08/10/16 17:16 Dose: 20 mg Heparin Sodium (Porcine) (Heparin Vial(*)) 5,000 units SUBCUT Q8HR [facility] Last Admin: 08/11/16 05:00 Dose: 5,000 units Levothyroxine Sodium (Synthroid Tab*) 125 mcg PO DAILY@0600 [facility] Last Admin: 08/11/16 05:00 Dose: 125 mcg Losartan Potassium (Cozaar Tab*) 25 mg PO DAILY [facility] Last Admin: 08/11/16 07:48 Dose: 25 mg Magnesium Oxide (Magox 400 Tab*) 400 mg PO DAILY [facility] Last Admin: 08/11/16 07:48 Dose: 400 mg Nicotine Polacrilex (Nicotine Gum*) 2 mg PO Q2H PRN PRN Reason: CRAVING Last Admin: 08/11/16 10:02 Dose: 2 mg Ondansetron HCl (Zofran Inj*) 4 mg IV Q6H PRN PRN Reason: NAUSEA Paroxetine HCl (Paxil Tab*) 20 mg PO DAILY [facility] Last Admin: 08/11/16 07:48 Dose: 20 mg Phenytoin Sodium (Dilantin Infatabs Chew Tab(*)) 150 mg PO DAILY [facility] Last Admin: 08/11/16 07:48 Dose: 150 mg Phenytoin Sodium (Dilantin Cap(*)) 200 mg PO QPM [facility] Last Admin: 08/10/16 17:17 Dose: 200 mg Pyridostigmine [place] (Mestinon Tab*) 90 mg PO 0800,1200 [facility] Last Admin: 08/11/16 07:49 Dose: 90 mg Pyridostigmine [place] ([place] Tab*) 60 mg PO BEDTIME [facility] Last Admin: 08/10/16 20:33 Dose: 60 mg Solifenacin (Vesicare(Nf)) 10 mg PO DAILY [facility] Last Admin: 08/11/16 07:49 Dose: 10 mg Spironolactone (Aldactone Tab*) 12.5 mg PO DAILY [facility] PRN Reason: Protocol Last Admin: 08/11/16 07:47 Dose: 12.5 mg Vital Signs 08/10/16 08/10/16 08/10/16 11:34 13:12 14:04 Temperature 98.4 F Pulse Rate 83 77 Respiratory 20 Rate Blood Pressure 179/66 140/62 139/55 (mmHg) O2 Sat by Pulse 100 Oximetry 08/10/16 08/10/16 08/10/16 15:50 16:38 19:28 Temperature 98.3 F 98.3 F Pulse Rate 81 85 Respiratory 16 18 Rate Blood Pressure 165/61 130/52 (mmHg) O2 Sat by Pulse 98 98 96 Oximetry 08/10/16 08/11/16 08/11/16 20:00 00:15 01:43 Temperature 98.3 F Pulse Rate 78 78 Respiratory 18 16 16 Rate Blood Pressure 152/55 (mmHg) O2 Sat by Pulse 98 98 Oximetry 08/11/16 08/11/16 08/11/16 04:10 07:29 08:00 Temperature 98.1 F 98.3 F Pulse Rate 71 87 Respiratory 16 20 18 Rate Blood Pressure 169/60 181/79 (mmHg) O2 Sat by Pulse 100 97 Oximetry 08/11/16 08/11/16 09:24 09:28 Temperature Pulse Rate 61 Respiratory 16 Rate Blood Pressure 115/80 (mmHg) O2 Sat by Pulse 97 Oximetry Oxygen Devices in Use Now: None Appearance: Older female patient, OOB to chair, in NAD Eyes: PERRLA Ears/Nose/Mouth/Throat: Clear Oropharnyx, Mucous Membranes Moist Neck: NL Appearance and Movements; NL JVP Respiratory: Symmetrical Chest Expansion and Respiratory Effort, Clear to Auscultation Cardiovascular: RRR - systolic murmur 2-3/6 Abdominal: NL Sounds; No Tenderness; No Distention Extremities: No Edema, No Clubbing, Cyanosis Skin: No Rash or Ulcers Neurological: Alert and Oriented x 3 Lines/Tubes/Other Access: Clean, Dry and Intact Peripheral IV Result Diagrams: 08/09/16 00:45 08/09/16 00:45 Assess/Plan/Problems-Billing Assessment: Ms. Smith is an 81 yo female with a PMH of CAD, TIA, HTN, HLD, seizure disorder , myasthenia gravis, LBBB, and depression who presented on 08/09/16 with confusion and generalized weakness. - Patient Problems (1) Elevated troponin Code(s): R79.89 - OTHER SPECIFIED ABNORMAL FINDINGS OF BLOOD CHEMISTRY Comment : Suspect demand ischemia earlier in the admission; patient continues to deny chest pain. She reports episode of chest pain earlier in the admission that was relieved by Zantac Unable to obtain stress test today; echo shows EF 45-50%, septal wall hypertrophy, moderate MR and MS (MS previously noted as mild), moderate TR, moderate pulmonary HTN. Recommend patient have outpatient stress test, this was discussed with patient and family. (2) Seizure disorder Code(s): G40.909 - EPILEPSY, UNSP, NOT INTRACTABLE, WITHOUT STATUS EPILEPTICUS Comment: Phenytoin level 10.3 on 08/10 (previously 5.8 on admission, which is significantly lower than the other levels in the record). Continue increased dose of 150 mg AM, 200 mg PM. Follow-up level ordered for next week prior to PCP follow-up visit. Patient advised to limit her alcohol use to 1 glass wine per day. (3) Gait difficulty Code(s): R26.9 - UNSPECIFIED ABNORMALITIES OF GAIT AND MOBILITY Comment: PT eval done 08/09. Therapist saw her again 08/10, verbally reports she is walking much better, probably close to or at her baseline. Family confident pt has improved enough to do well at home. Plan for home VNS with PT eval and treat. (4) Dementia Code(s): F03.90 - UNSPECIFIED DEMENTIA WITHOUT BEHAVIORAL DISTURBANCE Comment : Family aware of her problem. Her son lives with her but is away much of the day. VNS referral made. (5) Myasthenia gravis Code(s): G70.00 - MYASTHENIA GRAVIS WITHOUT (ACUTE) EXACERBATION Comment: Resume usual dose pyridostigmine. (6) Hypothyroid Code(s): E03.9 - HYPOTHYROIDISM, UNSPECIFIED Comment: Continue levothyroxine 125 mcg, dose per [facility]. (7) Meningioma Code(s): D32.9 - BENIGN NEOPLASM OF MENINGES, UNSPECIFIED Comment: Although dx not definite, likely a meningioma, stable since 02/09/15 MRI. F/u with Dr. Ribera. (8) Ventricular tachycardia Code(s): I47.2 - VENTRICULAR TACHYCARDIA Comment: 7 beats vtach, self-limited, on 08/09, none since. Echo shows EF 45-50%, septal wall hypertrophy, moderate MR and MS (MS previously noted as mild), moderate TR , moderate pulmonary HTN. Recommend patient have outpatient stress test, this was discussed with patient and family. Outpatient cardiology follow-up recommended for worsening mitral stenosis. Continue magnesium oxide. (9) DVT prophylaxis Comment: SQ heparin Status and Disposition: Inpatient admission. D/c to home with close follow-up.
[2016-08-11 15:24] VITALS: BP 140/52
--- NOTE | 2016-08-12 03:36 | DS ---
DISCHARGE SUMMARY: DATE OF ADMISSION: 08/09/16 DATE OF DISCHARGE: 08/11/16 PRIMARY CARE PHYSICIAN: Sheila Guido MD. ATTENDING PHYSICIAN: Nida Wiley MD *(dictated by Juan Jarvis NP) PRIMARY DISCHARGE DIAGNOSES: 1. Altered mental status. 2. Seizure disorder. 3. Nonsustained ventricular tachycardia. SECONDARY DISCHARGE DIAGNOSIS: 1. Coronary artery disease. 2. Transient ischemic attack. 3. Hypertension. 4. Hyperlipidemia. 5. Myasthenia gravis. 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 7. Left bundle branch block. 8. Depression. 9. Overactive bladder. MEDICATIONS ON DISCHARGE: 1. Levothyroxine 125 mcg daily. 2. Ranitidine 150 mg q.p.m. 3. Cholecalciferol 1000 units daily. 4. Aspirin 81 mg daily. 5. Vitamin B12 at 1000 mcg daily. 6. Pyridostigmine 60 mg at bedtime and 90 mg at 0800 and 1200. 7. Paxil 30 mg daily. 8. Lipitor 10 mg daily. 9. Phenytoin 150 mg q.a.m. and 200 mg q.p.m. This is a change in dose. 10. Losartan 50 mg daily. 11. VESIcare 10 mg daily. 12. Eplerenone 25 mg daily. 13. Multivitamin one tab daily. 14. Magnesium oxide 400 mg daily. This is a new medication. HOSPITAL STAY COURSE: For full details, please refer to the H and P provided by Burton Schmidt MD, on 08/09/16. In summary, Ms. Smith is an 81-year-old female who presented to the ED on 08/09/16 with concern for altered mental status. Reportedly, the patient remembers being awake around 1900 hours and then her next recollection is being awake about 2300 and feeling tremulous, sweating and nauseous. She called her son, who in turn called the EMS. The patient's blood sugar was noted greater than 400 via EMS but in the ED, it was noted to be 102. The patient's son reported that she was mildly confused; however, the patient denied any chest pain, focal weakness, numbness, tingling, slurred speech, word searching, difficulty swallowing, headache, emesis or any other issues of concern. EKG showed a left bundle branch block at the rate of 101 and an indeterminate troponin and mildly elevated lactic acid. The patient was admitted for further observation. It was also noted that her phenytoin level was low and her medication dose was increased in order to get it back to a therapeutic level. An EEG was done on 08/09/16 and the clinical impression states that this awake EEG is abnormal because of the presence of the left temporal sharp waves suggesting a predisposition to focal seizure disorder and similar to study done in 2001. The patient was initially under the care of Dr. Hannah who ordered an echocardiogram due to the patient's reported 7-beat episode of V-tach. Additionally, through the nursing notes, it appears that the patient also had an episode of chest pain that was relieved by Zantac. It was thought that the chest pain was related to GI causes. Her troponins remained flat at 0.1 on 08/09. On the day of discharge, the patient was unable to be fit into a schedule for stress test; however, she had been chest pain free for over the 24 hours and continued to deny chest pain. I did discuss with her and her family that it may be beneficial to obtain an outpatient stress test with her PCP given that her troponins were mildly elevated and we have no baseline for them. Additionally, given this short episode of V-tach, the patient may also have concern that she may be going in and out of V-tach in the outpatient setting and we did recommend also following up with her PCP and blood bank worker for the potential of having an outpatient heart monitor. Both the patient and her family are in agreement with this. Again, the patient continues to deny chest pain and has stated that she has felt well. Her phenytoin remains at her new increased dose of 150 mg in the morning and she still is on her 200 mg dose at night. In terms of gait and ambulatory ability, the patient has worked with PT here, has shown marked improvement. Visiting nursing visit has been set up for further evaluation in the home. Visiting nurse services will also be evaluating the patient for any other home needs as she does live with her son but he is not with her most of the day and the patient does have some known history of dementia. I also recommended that the patient follow up with her blood bank worker in the outpatient setting as her echocardiogram did show some new moderate mitral stenosis, which has increased from her previous echocardiogram which showed mild mitral stenosis. Again, these findings were reviewed with the patient and her family who verbalized understanding and agreement. Followup appointments were scheduled and made prior to the patient's discharge. CONCERNS AT DISCHARGE: The patient will be discharged to home on 08/11/16 with a plan to follow up with Dr. Guido next week and Dr. Bautista the following week. DIET: May resume regular diet. The patient was advised to limit her alcohol intake to at most 1 glass of wine a day if any. ACTIVITY: As tolerated. CONDITION: Improved, stable. DISPOSITION: To home with home health services. TIME SPENT: Time spent on this discharge was approximately 40 minutes. This is only a brief summary of the patient's hospital course and stay. For full details, please refer to the full medical record. If you have any further questions or need further assistance, please feel to contact me at [phone]. JUAN JARVIS NP CC: Sheila Guido MD* [id number]/CPS #: [id number] ROLAN
== END 2016-08-11 16:16 | disposition home health service (06) | DRG 101 ==
LOC: ED 00:33 → MEDTELE 04:17
PROVIDERS: ADMIT Hospitalist; ATTEND Internal Medicine
PROC: 4A00X4Z Measurement of Central Nervous Electrical Activity, External Approach (ICD-10-PCS; principal; 2016-08-09)
DX: G40.909 Epilepsy, unspecified, not intractable, without status epilepticus (principal); I47.2 Ventricular tachycardia; G70.00 Myasthenia gravis without (acute) exacerbation; F03.90 Unspecified dementia, unspecified severity, without behavioral disturbance, psychotic disturbance, mood disturbance, and anxiety; I27.2 Other secondary pulmonary hypertension; R41.82 Altered mental status, unspecified; I44.7 Left bundle-branch block, unspecified; I25.10 Atherosclerotic heart disease of native coronary artery without angina pectoris; Z86.73 Personal history of transient ischemic attack (TIA), and cerebral infarction without residual deficits; I10 Essential (primary) hypertension; E78.5 Hyperlipidemia, unspecified; F32.9 Major depressive disorder, single episode, unspecified; N32.81 Overactive bladder; Z79.82 Long term (current) use of aspirin; Z88.2 Allergy status to sulfonamides; Z88.5 Allergy status to narcotic agent; Z95.5 Presence of coronary angioplasty implant and graft; J45.909 Unspecified asthma, uncomplicated; J44.9 Chronic obstructive pulmonary disease, unspecified; K21.9 Gastro-esophageal reflux disease without esophagitis; M19.90 Unspecified osteoarthritis, unspecified site; M81.0 Age-related osteoporosis without current pathological fracture; Z82.49 Family history of ischemic heart disease and other diseases of the circulatory system; Z87.891 Personal history of nicotine dependence; Z85.830 Personal history of malignant neoplasm of bone; Z90.710 Acquired absence of both cervix and uterus; R26.9 Unspecified abnormalities of gait and mobility; E03.9 Hypothyroidism, unspecified; I08.1 Rheumatic disorders of both mitral and tricuspid valves; R79.89 Other specified abnormal findings of blood chemistry; R07.89 Other chest pain
CPT/HCPCS: 36415; 80053; 80185; 80320; 81003; 83605; 83735; 84146; 84443; 84484; 85025; 93005; 93306; 94640; 94760; 95816; A9270-GY; G0480; J1644; J3475

== ENCOUNTER 2016-08-22 10:46 | Emergency (ER) | payer MEDICARE, BC ==
[2016-08-22] MEDS ORDERED: Succinylcholine* 20 MG/ML 10 ML VIAL ONE (10:57)
[2016-08-22 11:16] LABS: Hematocrit 41 % (35-47); Hemoglobin 13.9 g/dl (12.0-16.0); Mean Corpuscular HGB Conc 34 g/dl (31-36); Mean Corpuscular Hemoglobin 35 pg (27-31); Mean Corpuscular Volume 104 fL (80-97); Mean Platelet Volume 9 um3 (7.4-10.4); Red Blood Count 3.98 10^6/ul (4.0-5.4); Red Cell Distribution Width 14 % (10.5-15); White Blood Count 4.7 10^3/ul (3.5-10.8)
--- NOTE | 2016-08-22 11:17 | RAD ---
INDICATION: Neurologic changes, code [id number]. COMPARISON: Comparison is made with a prior CT of the brain from November 02, 2015 and a prior MRI of the brain from August 18, 2016. TECHNIQUE: Contiguous axial sections of the brain were obtained from the skull base to the vertex without contrast. FINDINGS: There is a focal area of hemorrhage present in the left thalamus and periventricular white matter measuring 2.9 x 2.0 cm in size. There is mass effect on the left lateral ventricle and third ventricle with slight midline shift of approximately 3 mm. The ventricles are enlarged consistent with diffuse atrophy. There are confluent areas of decreased attenuation in the subcortical and periventricular white matter consistent with chronic small vessel ischemic changes. There are postsurgical changes in the right frontal lobe. There is an extra-axial lesion which is unchanged which may represent postsurgical change or a small meningioma. There is an adjacent small focal area of encephalomalacia. These findings are unchanged. No significant focal osseous abnormality is seen. The visualized portion of the paranasal sinuses and mastoid air cells appear clear. The results of this exam were called to the referring clinician at 1105 hours. IMPRESSION: 1. THERE IS A FOCAL AREA OF PARENCHYMAL HEMORRHAGE IN THE LEFT PERIVENTRICULAR WHITE MATTER AND THALAMUS CAUSING MILD SUBFALCINE HERNIATION. 2. MODERATE TO SEVERE CHRONIC SMALL VESSEL ISCHEMIC CHANGES.
[2016-08-22 11:28] LABS: Albumin 4.4 g/dL (3.2-5.2); BUN/Creatinine Ratio 16.7 (8-20); Calcium 9.4 mg/dL (8.6-10.3); EGFR Non-African American 77.7 (>60); Globulin 2.7 g/dL (2-4); Total Bilirubin 0.5 mg/dL (0.2-1.0); Total Protein 7.1 g/dL (6.4-8.9)
[2016-08-22 11:30] LABS: Troponin I 0.01 ng/mL (<0.04)
[2016-08-22 11:31] LABS: HDL Cholesterol 106.7 mg/dL
[2016-08-22] MEDS ORDERED: Desmopressin Acetate* 4 MCG/ML 10 ML VIAL IVPB ONE (11:33)
[2016-08-22] MEDS ORDERED: NS 0.9% 250 ML* 250 ML ONE (11:43)
[2016-08-22] MEDS ORDERED: NS 0.9% 50 ML* 50 ML ONE (11:44)
[2016-08-22] MEDS ORDERED: NitroPRUSSide* 50 MG in NS 0.9% 250 ML* 250 ML IVPB SCH (11:45)
[2016-08-22] MEDS ORDERED: Rocuronium* 10 MG/ML VIAL ONE (12:00)
[2016-08-22] MEDS ORDERED: Desmopressin Acetate* 20 MCG in NS 0.9% 50 ML* 50 ML IVPB ONE (12:00)
[2016-08-22] MEDS ORDERED: Lidocaine 2% (CARDIAC)* 20 MG/ML 5 ML SYRINGE (100 MG) IV ONE (12:00)
[2016-08-22] MEDS ORDERED: Etomidate* 2 MG/ML 20 ML VIAL (40 MG) ONE (12:08)
[2016-08-22] MEDS ORDERED: Propofol* 100 ML ONE (12:18)
[2016-08-22] MEDS ORDERED: VECURONIUM BROMIDE 10 MG INJ ONE (12:18)
[2016-08-22] MEDS ORDERED: LORazepam INJ* 2 MG/ML 1 ML VIAL ONE (12:18)
[2016-08-22] MEDS ORDERED: LORazepam INJ* 2 MG/ML 1 ML VIAL IV ONE (12:18)
[2016-08-22 12:31] LABS: Urine Bilirubin Negative (Negative); Urine Glucose Negative (Negative); Urine Nitrite Negative (Negative)
--- NOTE | 2016-08-22 12:49 | CONSULT ---
Consult Consult: 81 yo RHF, TIA (ASA baseline; no anticoag), MG (mestinon only (90am, 90 noon, 60 pm); no immunsuppressants), CAD, meningioma (right frontal; remote resection ; complicated by seizure 1988; chronically on Dilantin 150mg am and 200mg pm), right ICA/pcomm aneurysms (saw Dr Rodriguez of [facility] endovascular neurosurgery several years ago; conservatively managed), p/w acute onset this am of slurred speech and right facial asymmetry progressing to obtundation and right sided weakness. Her son witnessed the episode and activated EMS immediately; she presented to the ED withion half an hour; CT showed a left basal ganglia ICH. In discussion with her son she is a FC and they are interested in aggressive supportive care and possibly surgical intervention if necessary. She was initially maintaining her airway but has since been intubated at the behest of the ED. She was hospitalized 2 weeks ago at [facility] for possible TIA vs seizure after an episode of decreased responsiveness; she had an elevated etoh level at the time ; her phenytoin dose was increased for a sub therapeutic level. Exam initially obtunded in CT scanner and clenched eyes shut tight, later on re exam had eyes open with left gaze preference, pupils reactive, blinks to threat, no facial asymmetry, mute, maintaining airway at time; corneals intact; no convulsions; at times posturing with right arm; withdraws bilaterally to pain , decreased in right arm; reflexes 2+ right vs 2 left; right toe extensor vs left mute/flexor; bruises; no edema Allergies/meds per sep Pmh as above, plus HTN, HL, NSVT, LBBB, depression, osteogenic chondrosarcoma left femur, GERD, hypothyroid FH NC SH son present, lives with him; ROS unobtainable due to altered mental status Serologies: - Cr, LFTs, coags, trop, LDL, lactate all normal or neg; PHE level 10; cbc ok save mcv 104; Na 132 - Priors: ESR, TSH neg; AchR and MUSK Ab neg 2011; GENARO 1:640 in 2011 Imaging: - Head CT reviewed and has left BG moderate sized bleed with mild sub tentorial mid line shift and surrounding vasogenic edema; no involvement of ventricles - MRI brain 08/15 (2 weeks ago) and 12/12 had white matter disease, right frontal post op changes and likely residual meningioma; bifrontal hemosiderin near op sites - 02/10 mra head had 5mm saccular right ICA aneurysm at level of pcom, and a 3mm aneurysm of right cavernous ICA - 07/11 CUS < 50% stenosis bilaterally - 08/15 TTE with EF 45-50%, mild-mod LAE, mod pHTN Physiology: 08/15 EEG per report had left temporal sharp waves (apparently similar to that seen on prior 2001 study) Impression: 81 yo RHF, TIA (ASA baseline; no anticoag), MG (mestinon only; no immunosuppressants, seronegative; unknown how diagnosis made), CAD, meningioma ( right vs bi-frontal; remote resection; complicated by localization related seizure disorder; chronically on Dilantin), right ICA aneurysms (conservatively managed), p/w acute onset right sided weakness, aphasia and left gaze preference in context of left basal ganglia ICH. There is no history of witnessed acute seizure; her PHE is low therapeutic range. Her Na may reflect early SIADH, med effect or other factors. Her family is interested in aggressive management and in discussion with ED and transfer center she is being transferred to [place]. The location of her ICH is classic for HTN and her aneurysms are contralateral to the site of bleeding; ie it unclear if these are incidental to her acute presentation, and her initial imaging had no SAH.
--- NOTE | 2016-08-22 12:52 | RAD ---
Indication: Respiratory failure. Single frontal view of the chest performed at 1230 hours was reviewed. Comparison is made with previous exam dated June 12, 2013. No mediastinal shift is noted. Heart is of normal size and configuration. Lung duque appear clear. ET tube is in appropriate position. IMPRESSION: NO ACTIVE CARDIOPULMONARY DISEASE IS NOTED. ET TUBE IS JUST ABOVE THE DAMARI.
[2016-08-22] MEDS ORDERED: VECURONIUM BROMIDE 10 MG INJ IV ONE (13:00)
[2016-08-22] MEDS ORDERED: Propofol* 1000 MG (10 MG/ML 100 ml) @ Per Protocol (in ICU Pyxis) IV SCH (13:00)
[2016-08-22 13:06] VITALS: BP 130/60
--- NOTE | 2016-08-22 13:06 | ED ---
Corky Arguelles Anna, scribed for Edilberto Dalton MD on 08/22/16 at 1101 . Neurological HPI - HPI Summary HPI Summary: Patient is an 81 y/o female BIBA to [facility] presenting with RUE weakness that began 25 minutes ago. The patient was sitting and having coffee with her son when the symptoms began. Upon arrival of EMS, she was talking but had slurred speech. There was no evidence of trauma. When EMS put her in the ambulance, she began to decline. Upon arrival at [facility], she is no longer alert. She takes baby Aspirin regularly. Patient was seen two weeks ago for a TIA. LEVEL 5 CAVEAT- UNABLE TO OBTAIN FULL HISTORY DUE TO PATIENT CONDITION. IF THERE IS ONE, PLEASE SEE DICTATION BY DR. DALTON FOR FURTHER INFORMATION. - History of Current Complaint Stated Complaint: POSS CVA Hx Obtained From: EMS Onset/Duration: Sudden Onset, Worse Since - arrival of EMS Timing: Constant Neurological Deficit Location: RUE - Additional Pertinent History Primary Care Physician: [id number] - Allergy/Home Medications Allergies/Adverse Reactions: Allergies Allergy/AdvReac Type Severity Reaction Status Date / Time Sulfa Drugs Allergy Intermediate Rash Verified 08/16/16 15:10 Methocarbamol AdvReac Intermediate confusion Verified 08/16/16 15:10 Morphine AdvReac Intermediate Nausea And Verified 08/16/16 15:10 Vomiting Home Medications: Home Medications Aspirin EC Low Dose* [Ecotrin EC Low Dose*] 81 mg PO DAILY 08/22/16 [History Confirmed 08/22/16] Cholecalciferol TAB* [Vitamin D TAB*] 1,000 unit PO DAILY 08/22/16 [History Confirmed 08/22/16] Cyanocobalamin TAB* [Vitamin B12 TAB*] 1,000 mcg PO DAILY 08/22/16 [History Confirmed 08/22/16] Losartan TAB* [Cozaar TAB*] 50 mg PO DAILY 08/22/16 [History Confirmed 08/22/16] Multivitamins/Minerals TAB* [Theragran/minerals TAB*] 1 tab PO DAILY 08/22/16 [ History Confirmed 08/22/16] PARoxetine HCL TAB* [Paxil TAB*] 30 mg PO DAILY 08/22/16 [History Confirmed ] Phenytoin CAP(*) [Dilantin CAP(*)] 100 mg PO QAM 08/22/16 [History Confirmed ] Pyridostigmine TAB* [Mestinon TAB*] 60 mg PO BEDTIME 08/22/16 [History Confirmed 08/22/16] Pyridostigmine TAB* [Mestinon TAB*] 90 mg PO 0800,1200 08/22/16 [History Confirmed 08/22/16] PMH/Surg Hx/FS Hx/Imm Hx Endocrine/Hematology History: Reports: Hx Anticoagulant Therapy - ASA 81 mg qd, Hx Blood Transfusions, Hx Thyroid Disease, Other Endocrine/Hematological Disorders - A- Denies: Hx Diabetes Cardiovascular History: Reports: Hx Aneurysm, Hx Angina, Hx Coronary Artery Disease, Hx Hypercholesterolemia, Hx Hypertension, Other Cardiovascular Problems /Disorders - cardiac stents Denies: Hx Pacemaker/ICD Respiratory History: Reports: Hx Asthma, Hx Chronic Bronchitis, Hx Chronic Obstructive Pulmonary Disease (COPD) Comment Only: Other Respiratory Problems/Disorders - COPD GI History: Reports: Hx Gastroesophageal Reflux Disease, Other GI Disorders - constipation r/t pain meds History: Denies: Hx Renal Disease Musculoskeletal History: Reports: Hx Arthritis, Hx Back Problems, Hx Orthopedic Injury, Hx Osteoporosis, Other Musculoskeletal History - megaprostesis LLE Sensory History: Reports: Hx Contacts or Glasses Denies: Hx Hearing Aid Comment Only: Other Sensory Impairments - occular myesthenia gravis Opthamlomology History: Reports: Hx Contacts or Glasses Comment Only: Other Sensory Impairments - occular myesthenia gravis Neurological History: Reports: Hx Seizures - hx brain tumor, Hx Transient Ischemic Attacks (TIA) Denies: Hx Dementia Psychiatric History: Reports: Hx Depression Denies: Hx Panic Disorder, Hx Substance Abuse - Cancer History Cancer Type, 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 Hx Chemotherapy: Yes - 19 yrs ago - Surgical History Surgery Procedure, Year, and Place: hysterectomy, benign brain tumor 1988 with seizure activity(no seizures since surgery) Craniotomy , osteosarcoma left femur with lila,left FEMUR plate,append[place],hernia [place]ONE IS CONDITIONAL 5 FOR 3T,2ND IS SAFE FOR BOTH) - Immunization History Date of Tetanus Vaccine: Unk Date of Influenza Vaccine: Fall 2011 Infectious Disease History: Denies: Hx Hepatitis, Hx Human Immunodeficiency Virus (HIV) - Family History Known Family History: Positive: Hypertension Negative: Cardiac Disease, Diabetes - Social History Occupation: Retired Alcohol Use: Daily Alcohol Amount: glass of wine Substance Use Type: Reports: None Smoking Status (MU): Former Smoker Review of Systems - ROS Summary Review of Systems Summary: LEVEL 5 CAVEAT- UNABLE TO OBTAIN FULL HISTORY DUE TO PATIENT CONDITION. Positive: Weakness All Other Systems Reviewed And Are Negative: No Physical Exam - Summary Physical Exam Summary: GENERAL: Awake, not alert, HEENT: Head is normocephalic, atraumatic, pupils equal round reactive to light, no photophobia, extraocular muscles intact, no facial droop, anicteric sclera, pink conjunctiva, mucous membranes moist, no erythema, no discharge, no lesions , neck is soft, neck is supple, no carotid bruit , trachea is midline, no JVD CARDIAC: Regular rate and rhythm, S1, S2, no rub, no murmur, no gallop, 2+ radial and pedal pulses bilaterally RESPIRATORY: Clear to auscultation bilaterally with no rales, rhonchi, or wheezes, non-tender ABDOMEN: Bowel sounds positive, no bruit, soft non-tender, no CVA tenderness EXTREMITIES: No edema, warm, dry, moving all extremities in a grossly normal manner NEUROLOGICAL: Not responding to verbal or tactile stimuli. Eyes gazing to left. Flaccid right extremities, upper and lower. Positive gag. LEVEL 5 CAVEAT- UNABLE TO OBTAIN FULL PHYSICAL DUE TO PATIENT CONDITION.IF THERE IS ONE, PLEASE SEE DICTATION BY DR. DALTON FOR FURTHER INFORMATION. Triage Information Reviewed: Yes Vital Signs On Initial Exam: Temp Pulse Resp BP Pulse Ox 98.6 F 69 14 189/79 98 08/22/16 11:19 08/22/16 11:20 08/22/16 12:23 08/22/16 11:19 08/22/16 11:20 Vital Signs Reviewed: Yes Procedures - Intubation Time of Intubation: 12:19 - Pre-oxygenated and treated with Lido. Intubation Method: nasotracheal - Confirmed by direct visualization. Breath Sounds after Intubation: equal Intubation Complications: no complications - Normalization of vital signs. Post Intubation Xray: Yes - Tube secured at 23 to lip line and confirmed by XR. Diagnostics - Laboratory Result Diagrams: 08/22/16 11:08/22/16 11:01 Lab Statement: Any lab studies that have been ordered have been reviewed, and results considered in the medical decision making process. - Radiology CXR Xray Interpretation: No Acute Changes Radiology Interpretation Completed By: Radiologist - IMPRESSION: NO ACTIVE CARDIOPULMONARY DISEASE IS NOTED. ET TUBE IS JUST ABOVE THE DAMARI. - CT CT Brain CT Interpretation: Positive (See Comments) CT Interpretation Completed By: Radiologist - IMPRESSION: 1. THERE IS A FOCAL AREA OF PARENCHYMAL HEMORRHAGE IN THE LEFT PERIVENTRICULAR WHITE MATTER AND THALAMUS CAUSING MILD SUBFALCINE HERNIATION. 2. MODERATE TO SEVERE CHRONIC SMALL VESSEL ISCHEMIC CHANGES. - EKG 10:40, from EMS Cardiac Rate: NL - 75 bpm EKG Rhythm: Atrial Fibrillation EKG Interpretation: LBBB Course/Dx - Diagnoses Provider Diagnoses: Intracranial hemorrhage During the Visit The Following Alert/Code Occurred: Code Lewis - Physician Notifications Discussed Care of Patient With: Neuroradiologist at 11:08. Advises intracranial hemorrhage is evident. Dr. Gray ([facility]) at 11:09. Agrees to admit patient. - Critical Care Time Critical Care Time: 30-74 min Discharge - Discharge Plan Condition: Stable Disposition: TRANS HIGHER LVL OF CARE FAC Referrals: Sheila Guido MD [Primary Care Provider] - The documentation as recorded by the Corky merino Anna accurately reflects the service I personally performed and the decisions made by , Edilberto Dalton MD.
--- NOTE | 2016-08-22 13:14 | RAD ---
INDICATION: Endotracheal tube repositioning COMPARISON: Chest x-ray August 22, 2016 TECHNIQUE: An AP portable view obtained at 1255 hours is submitted. FINDINGS: Bones/Soft Tissues: There are no acute bony findings. There is very little change in the position of the endotracheal tube which is immediately above the jeff. Cardiomediastinal: The cardiomediastinal silhouette is normal. Lungs: There are no infiltrates. Pleura: There are no pleural effusions. Other: None IMPRESSION: ENDOTRACHEAL TUBE POSITIONED DESCRIBED. LUNGS CLEAR.
== END 2016-08-22 13:05 | disposition short-term general hospital (02) ==
LOC: ED 10:46
DX: I62.9 Nontraumatic intracranial hemorrhage, unspecified (principal); Z87.891 Personal history of nicotine dependence
CPT/HCPCS: 36415; 70450; 71010; 80053; 80061; 80185; 81003; 83605; 84484; 85025; 85610; 85730; 93005; 94002; 96365; 99285; J0330; J2060; J2597; J2704